=== PATIENT | female | born 1960 | race Caucasian/White ===

== ENCOUNTER 2017-11-06 14:39 | Emergency (ER) | payer OTHER ==
[2017-11-06] MEDS: NAPROXEN 500 MG TAB PO (19:35)
[2017-11-06] MEDS: FAMOTIDINE 20 MG TAB PO (19:35)
[2017-11-06 19:37] LABS: URINE BLOOD (Dip) POC Negative (NEGATIVE); URINE GLUCOSE (Dip) POC Negative (NEGATIVE); URINE KETONES (Dip) POC Negative (NEGATIVE); URINE LEUKOCYTE EST (Dip) POC Negative (NEGATIVE); URINE NITRITE (Dip) POC Negative (NEGATIVE); URINE TOTAL PROTEIN POC Negative (NEGATIVE)
== END 2017-11-06 20:27 | disposition home or self-care (01) ==
LOC: FTE 14:39
DX: M54.9 Dorsalgia, unspecified (principal)
CPT/HCPCS: 81003; 99282